=== PATIENT | male | born 1980 | race Caucasian/White ===

== ENCOUNTER 2024-05-03 13:56 | Emergency (ER) | payer SELFPAY ==
[2024-05-03 14:09] VITALS: BP 83/56; PULSE 67; RESP 18; TEMP 36.9; O2SAT 98; BMI 21.1
[2024-05-03 15:09] VITALS: BP 95/62; PULSE 67; RESP 19; O2SAT 98
--- NOTE | 2024-05-03 15:13 | MHC.EDTECH ---
this tech took over care @ 1500, checked on pt and they were resting quietly/sleeping, with equal chest rise present
--- NOTE | 2024-05-03 15:24 | ED.GENADULT ---
HPI - General Adult General Chief complaint: General Medical Stated complaint: LOW BP 93/58,HEROIN USE,IN [employer] PER EMS Time Seen by Provider: 05/03/24 15:24 Source: patient and EMS Mode of arrival: EMS Limitations: no limitations History of Present Illness ED Provider: Dr. 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 Onset (ago): hour(s) Related Data Allergies Allergy/AdvReac Type Severity Reaction Status Date / Time SEAFOOD Allergy Unknown HIVES, Uncoded 05/03/24 14:18 FACIAL SWELLING Review of Systems Review of Systems: Yes all other systems are reviewed and are negative Neurologic: Denies Sensory deficit (Neuro) PMFSH Social History Social History Advance Directives: No Advance Directives Information Provided: No Do you have a plan to hurt others: No Plan Physical Exam ED Vital Signs: Vital Signs - 24 hr 05/03/24 14:09 05/03/24 15:09 Temperature 98.4 F Pulse Rate 67 67 Respiratory Rate 18 19 Blood Pressure 83/56 L 95/62 Pulse Oximetry 98 98 Oxygen Delivery Method Room Air Room Air BMI result Body Mass Index 21.1 Const Other: cachectic male in no acute distress Orientation/consciousness: oriented to person and patient oriented x3 Limitations: no limitations HENMT Head: Yes normal to inspection Ears: external ears normal General nose exam: Normal external nose present Mouth: Normal oral and palatal mucosa present and oropharynx normal Throat: Yes posterior oropharynx normal Eyes General: appearance normal, both eyes and all related structures Neck Neck: Yes normal visual inspection Chest Chest palpation & inspection: normal inspection of the chest Resp Auscultation: clear to auscultation bilaterally Cardio Jugular venous distension: no JVD Rate: regular rate Rhythm: regular rhythm Heart sounds: S1 normal heart sound present and S2 normal heart sound present GI Inspection: Yes normal to inspection Palpation (GI): Soft to palpation, nontender and No hepatosplenomegaly present Auscultation: normal bowel sounds General: Yes no CVA tenderness Back/Spine/Pelvis Back: no CVA tenderness Skin Other: abrasion to right knee Neuro General: oriented to person and patient oriented x3 Cranial nerves: Yes CN's II-XII intact bilaterally Motor exam (neuro): 5/5 motor strength present throughout Sensory Exam: No Sensory deficit (Neuro) Extrem General: Yes normal to inspection Psych Appearance: grossly normal Course Reevaluation(s) Reevaluation #1: No acute injury will dc home Time: 15:45 Medical Decision Making Differential Diagnosis Differential Diagnoses: The differential diagnosis associated with the presentation includes (skin abrasion, knee contusion) Independent Historian Clinical information obtained from an independent historian. History obtained from or confirmed by: EMS and Other (police) Tests considered The following testing was considered but not selected: xray of knee considered but the injury was very minor Chronic Conditions Patient?s care impacted by: Other (drug abuse) Social Determinants Patient?s care significantly limited by Social Determinants of Health including: Alcoholism and drug addiction in family Discharge Plan Discharge Clinical Impression: Abrasion of skin Patient Disposition: Home, Self-Care Additional Instructions: keep wounds clean Print Language: [place]
[2024-05-03 16:01] VITALS: BP 98/61; PULSE 68; RESP 14; TEMP 36.9; O2SAT 97
== END 2024-05-03 16:03 | disposition home or self-care (01) ==
PROVIDERS: Emergency Provider Emergency Medicine
DX: S80.211A Abrasion, right knee, initial encounter (principal); Y35.893A Legal intervention involving other specified means, suspect injured, initial encounter; Y93.9 Activity, unspecified; Y92.9 Unspecified place or not applicable; Y99.9 Unspecified external cause status; I95.9 Hypotension, unspecified; Z63.72 Alcoholism and drug addiction in family
CPT/HCPCS: 99282; 99283